=== PATIENT | female | born 1965 | race Two or more races ===

== ENCOUNTER 2023-07-27 10:36 | Outpatient (RCR) | payer OTHER, SELFPAY ==
--- NOTE | 2023-08-10 13:03 | MHC.SP.ADU ---
Referring provider: Tejinder Messina MD Reason for Referral: Vocal hoarseness Type of Treatment: 06286 Behavioral and Qualitative Analysis of Voice and Resonance Date of Plan of Treatment: 07/27/23 Onset of Symptoms/Illness: 07/26/22 Date Treatment Started: 07/27/23 Medical Diagnosis: R49.0 Hoarseness Primary Speech Language Diagnosis: R49.0 Dysphonia History Jackie Echevarria is a 57 year old female referred for a voice evaluation by Tejinder Jones MD [facility]. Jackie was seen by the ENT for her main complaint of chronic vocal hoarseness. She also reported experiencing progressive dysphagia to solids for years. Patient reported choking occasionally and experiencing discomfort and neck pressure when laying supine. She noted intermittent voice hoarseness for a few months, the constant need to clear her throat, phlegm accumulation, and constantly feeling like something is stuck in her throat. Noted history of left goiter with some compressive symptoms. Patient subsequently had a flexible fiberoptic laryngoscopy showing erythema of the arytenoids and mild swelling of the true cord mucosa. Examination showed clear nasal discharge, hoarse raspy vocal quality, and evidence of vocal hyperfunction with arytenoid edema and erythema. Patient was recommended by the ENT to add Astelin to help with the nasal drip and famotidine to help with reflux. She was also referred to Speech Pathology for voice treatment prior to potential thyroidectomy. Medical History: Other: Dermatopolymyositis, type 2 diabetes, hypertension, anxiety, and left thyroid nodules dx in 2006, s/p benign FNA cytology in 2007 Medication List: Current medications include atorvastatin, azelastine, cetirizine, citalopram, famotidine, fluticasone propionate, folic acid, FreeStyle Lancets, FreeStyle Lite Strips, glipizide, hydroxychloroquine, Jardiance, ketotifen fumarate, lorazepam, losartan, melatonin, melatonin-lemon balm leaf extr, metformin, methotrexate sodium, montelukast, multivitamin Recent Hospitalizations: Respiratory Needs: Room Air Patient Orientation: Alert & Oriented x 4 Swallowing History: Dysphagia Specific: Within Functional Limits Reported Speech, Language, Cognition difficulties: Voice Assessment Jackie was recently seen by her ENT in March for complaints of vocal hoarseness. The ENT?s laryngoscopy exam showed evidence of vocal hyperfunction with arytenoid edema and erythema, history significant for left goiter with some compressive symptoms. Patient is here today hoping to establish speech therapy services for her voice concerns, as this was also recommended by the ENT. Jackie?s voice changed approximately a year ago around the time she was sick with a cold. She reports she ?used to be a loud talker, to the point of yelling sometimes,? but she is unable to project her voice that way now. She reports that her voice is very hoarse, weak, and unpredictable, and that she ?does not know what will come out until she begins speaking.? She says she even loses her voice sometimes. While she denies having to avoid social situations completely, she does say that she is usually ?staying quiet and just listening? or ?observing? rather than talking because of her voice difficulties. Jackie is additionally reporting thyroid issues and having an ?inflamed gland.? She says she was recommended by the ENT to wait 6 months to ?see if the inflammation would go down.? Jackie reports having history of acid reflux 2 years ago and having taken omeprazole in the past, but feels that her symptoms have improved and are not bothersome at this time. At this point, she denies having trouble swallowing, although her ENT notes previous dysphagia. Patient denies choking or coughing when swallowing, odynophagia, and globus sensation. Patient denies alcohol consumption and smoking herself, but is exposed to secondhand smoke at home. Patient reports struggling with allergies for the past 10 years, stating that she ?must carry allergy pills everywhere? because she experiences itchy and swollen eyes and sneezing. Patient was not sure if she had ever been tested for environmental allergies, but does note allergy to the tetanus shot. Patient?s medication list includes, atorvastatin, azelastine, cetirizine, citalopram, famotidine, fluticasone propionate (which could potentially cause throat dryness/soreness), folic acid, FreeStyle Lancets, FreeStyle Lite Strips, glipizide, hydroxychloroquine, Jardiance, ketotifen fumarate, lorazepam, losartan, melatonin, melatonin-lemon balm leaf extr, metformin, methotrexate sodium, montelukast, multivitamin. Consistent with the ENT?s observations, Jackie frequently cleared her throat throughout our entire assessment today, but especially when asked to phonate for vowel prolongation. With oral neuromotor examination, Jackie displayed facial symmetry at rest and with labial retraction. She was able to puff her cheeks and maintain labial seal when pressure was applied. She was able to purse her lips for production of vowel ?oo? and retract her lips for production of ?ee.? She also sequenced these two oral movements without difficulty to produce ?oo-ee-oo-ee.? Strength and range of motion of tongue, lips, and jaw are deemed to be within functional limits. Note intact and symmetrical velar elevation with phonation. Patient has adequate, natural dentition. Jackie participated in a screening of her oral motor skills as well. She was instructed to imitate the clinician's production of the following syllables: puh-puh-puh, tuh-tuh-tuh, kuh-kuh-kuh (Speech Alternate Motion Rates); and puh-tuh-kuh (Sequential Motion Rates) as quickly and as clearly as possible. Alternate Motion Rates (AMR's) and Sequential Motion Rates (SMR's) are assessments of articulatory diadochokinesis used to evaluate the speed and coordination of an individual's articulatory structures. Her production of AMR's and SMR's were within functional limits in rate, regularity, with articulatory precision. Jackie was instructed to prolong vowel /a/ for as long as she could at a comfortable volume. Three measures were combined to determine an average Maximum Phonation Duration, or Maximum Phonation Time (MPT). The MPT norm for adult females age 13-65 years is 21.34 seconds (Nhan, Paulo, & Sammy, 2011) (with SD= 5.66). Jackie?s average MPT with vowel /a/ was 10.72 sec, which is significantly below the adult female norm. Noted frequent throat clearing, increase in pitch, and eventually patient?s voice became aphonic with vowel prolongation. Patient?s s:z ratio (8.01/12.45) is 0.64. ENT did note mobility of vocal folds on exam. Patient denied any pain or tenderness with laryngeal palpation. Her vocal quality was clinically perceived as mildly hoarse, raspy, and strained. Vocal fatigue was noted as well, as patient?s voice became weaker as she continued speaking. Jackie completed the Voice Handicap Index (VHI). The VHI is a psychometrically validated tool consisting of 30 statements in the domains of functional, physical and emotional impact. Jackie was instructed to rate these statements from 0 meaning the statement ?never? applied to 4 meaning ?always.? These self-ratings illustrate the impact a voice condition has on an individual?s quality of life. Notably, Jackie indicated that almost always ?people ask [her] to repeat [herself] when speaking fvcp-fb-axip,? people ask, ?What?s wrong with your voice?,? and it takes a ?great deal of effort to speak.? She also indicated that she is always upset with her voice problem and the ?clarity of [her] voice is unpredictable.? Jackie?s total score of 41 correlates with a moderate voice problem. Impressions and Recommendations Summary: Impact on Daily Function/Activity Limitations: Daily Activities: Mild Interpersonal Interactions: Moderate Education: Mild Employment: Mild Community: Mild Prognosis for Improvement: Excellent Comment: Patient is highly motivated to participate in treatment and to improve her voice. Recommendation for Speech Therapy: Jackie presents with a mild dysphonia characterized by hoarseness, strained vocal quality, and mildly reduced volume especially with fatigue. Jackie had laryngoscopy done in March with her ENT showing arytenoid edema and erythema. Jackie does have history of reflux, which may be further exacerbating her concerns. Other precipitating factors include frequent throat clearing behavior and reports of environmental allergies and irritants such as secondhand smoke. Jackie is recommended individualized 1:1 voice treatment with a speech-language pathologist 1x weekly x 8 weeks to establish a vocal hygiene program and strategies for voice conservation. Frequency/Duration: 1x weekly x 8 weeks Power Lineman Technician Goals: Jackie will develop a vocal hygiene program and recall components of vocal hygiene with 100% accuracy independently. Short Term Goals: Goal # : 1. Jackie will describe how voice is produced to include phonation, resonance, and respiration across 3 data collections. 2. Jackie will identify personal and general situations and settings that promote vocal abuse across 3 data collections. Goal Status: New Goal Goal# : 3. Jackie will identify healthy voice alternatives and ways to promote vocal health in 80% of opportunities across 3 data collections. 4. Jackie will use abdominal/diaphragmatic breathing when producing sentences to support phonation in 80% of trials across 3 data sessions. Goal Status: New Goal Goal # : 5. Jackie will eliminate throat clearing by replacing behaviors (i.e. taking sip of water, silent /h/ cough, hard swallow) during a 30-minute time period with minimal cues. 6. Jackie will reduce vocal effort and fatigue by decreasing upper body tension with progressive relaxation in 4/5 opportunities with minimal cues across 3 sessions. Goal Status: New Goal Recommended Referrals to be Discussed with Primary Care Provider: GI Consult ENT Consult Management of allergies and reflux Patient Education: Completed: Yes Patient/Caregiver Education: Described Results of Evaluation Patient expressed understanding of evaluation Patient agrees with goals and treatment plan Comments/Barriers to Learning: It was a pleasure meeting and working with Jackie. Please do not hesitate to contact me at [phone] if I can be of further assistance. Radio Division Officer Clinican/Clinical Fellow: No Supervisory Statement: N/A Speech Language Pathologist: Kari Glasgow M.A., CCC-PIPE COVERER AND INSULATOR
== END 2023-08-23 09:48 | disposition still patient (30) ==
LOC: HO.SH 10:36
PROVIDERS: PCP Family Medicine; Visit Provider Otolaryngology
DX: R49.0 Dysphonia (principal)
CPT/HCPCS: 92524

== ENCOUNTER 2023-11-07 10:00 | Outpatient (RCR) | payer OTHER, SELFPAY ==
--- NOTE | 2024-07-08 12:51 | MHC.SL.SOA ---
Referring Provider: Tejinder Messina MD Reason for Referral: Vocal hoarseness Date of Plan of Treatment:07/27/23 Onset of Symptoms/Illness:07/26/22 Date Treatment Started:07/27/23 Medical Diagnosis:R49.0 Hoarseness Primary Speech Language Diagnosis:R49.0 Dysphonia Reason for Visit:Non-billable Event Subjective:Patient arrived unaccompanied for her appointments on 10/03 and 10/16. An in-house medical writer was used per request of the patient. Objective: Past medical records were provided by patient and reviewed. Patient will have a follow-up ultrasound of her thyroid in 5-6 months. She is followed by Rheumatology(Jorge L Dejesus MD) and Endocrinology. Patient completed the Reflux Symptom Index (RSI), receiving a score of 24, indicating concern for laryngeal pharyngeal reflux (LPR). Assessment:Patient complains of multiple symptoms, including vocal hoarseness, throat clearing, post nasal drip, heartburn, indigestion, and globus sensation. She says she saw a compressor repairer 4 years ago, started taking medication for her reflux, but stopped taking the medication after the pandemic. Discussed with patient recommendation for patient to see a G.I. specialist for concern of reflux which may be contributing to or exacerbating her voice difficulties. Patient was able to demonstrate diaphragmatic technique on rest breathing, but still requires feedback and prompting to do so. Patient recalled 3 strategies to reduce throat clearing behaviors (taking sip of water, humming, silent /h/ cough). Notes: Patient says she was referred to an taxi servicer two days ago and is awaiting a referral to see a G.I. specialist as well. Patient is able to teach back components of vocal hygiene and strategies recommended for reducing throat clearing behavior. Patient continues to complain of heart burn, globus, and vocal hoarseness, with RSI score indicating concern for potential LPR. Please re-refer if further HOSPITALITY HOUSEKEEPER tx is indicated after GI consultation. Plan: Goal # : 1. Jackie will describe how voice is produced to include phonation, resonance, and respiration across 3 data collections. 2. Jackie will identify personal and general situations and settings that promote vocal abuse across 3 data collections. 3. Jackie will identify healthy voice alternatives and ways to promote vocal health in 80% of opportunities across 3 data collections. 4. Jackie will use abdominal/diaphragmatic breathing when producing sentences to support phonation in 80% of trials across 3 data sessions. 5. Jackie will eliminate throat clearing by replacing behaviors (i.e. taking sip of water, silent /h/ cough, hard swallow) during a 30-minute time period with minimal cues. Status of Goal: Goal Met Goal # : 6. Jackie will reduce vocal effort and fatigue by decreasing upper body tension with progressive relaxation in 4/5 opportunities with minimal cues across 3 sessions. Status of Goal: Discharge Goal Seen by: Graduate/Clinical Fellow: No Supervisory Statement: f_Reg Query Last Value , MHC.AU.SIGNAT Speech Language Pathologist: Kari Glasgow M.A., CCC-HOSPITALITY HOUSEKEEPER
== END 2024-07-08 13:10 | disposition home or self-care (01) ==
LOC: HO.SH 10:00
PROVIDERS: PCP Family Medicine; Visit Provider Otolaryngology
DX: R49.0 Dysphonia (principal)
CPT/HCPCS: 92507